=== PATIENT | female | born 1995 | race American Indian/Alaskan Native ===

== ENCOUNTER 2017-06-17 06:54 | Emergency (ER) | payer OTHER ==
[2017-06-17 07:04] VITALS: O2SAT 98
--- NOTE | 2017-06-17 08:30 | C.PDOC ---
History Of Present Illness 22 y/o female with history of Asthma presents to ED with complaints of left sided rib, chest and back pain for 2 days. Patient states pain is worse with movement or taking deep breaths, and admits to heavy lifting at work. Patient admits she recently started smoking again and reports shortness of breath. Denies cough, fever, dizziness, headache or weakness Time Seen by Provider: 06/17/17 07:12 Chief Complaint (Nursing): Chest Pain History Per: Patient History/Exam Limitations: no limitations Onset/Duration Of Symptoms: Days Current Symptoms Are (Timing): Still Present Past Medical History Reviewed: Historical Data, Nursing Documentation, Vital Signs Vital Signs: Last Vital Signs Temp 97.9 F 06/17/17 08:30 Pulse 97 H 06/17/17 08:30 Resp 16 06/17/17 08:30 BP 109/66 06/17/17 08:30 Pulse Ox 98 06/17/17 13:04 - Medical History PMH: Asthma Surgical History: No Surg Hx Family History: States: No Known Family Hx - Social History Hx Alcohol Use: No Hx Substance Use: No - Immunization History Hx Tetanus Toxoid Vaccination: No Hx Influenza Vaccination: Yes Hx Pneumococcal Vaccination: Yes Review Of Systems Constitutional: Negative for: Fever Cardiovascular: Positive for: Chest Pain Respiratory: Positive for: Shortness of Breath. Negative for: Cough Gastrointestinal: Negative for: Nausea, Vomiting Genitourinary: Negative for: Dysuria, Hematuria Musculoskeletal: Positive for: Back Pain Physical Exam - Physical Exam Appears: Non-toxic, No Acute Distress Skin: Warm, Dry, No Rash Head: Atraumatic, Normacephalic Eye(s): bilateral: Normal Inspection, EOMI Oral Mucosa: Moist Neck: Normal ROM, Supple Chest: Symmetrical, Tenderness (to left subscapular area), No Ecchymosis, No Subcutaneous Emphysema, Other (Left lateral ribs tenderness. No palpable bone deformity. ) Cardiovascular: Rhythm Regular, No Murmur Respiratory: Normal Breath Sounds, No Rales, No Rhonchi, No Wheezing Gastrointestinal/Abdominal: Soft, No Tenderness, No Guarding, No Rebound Extremity: Normal ROM, Capillary Refill (<2 seconds), No Deformity, No Swelling Neurological/Psych: Oriented x3, Normal Speech Gait: Steady ED Course And Treatment ECG: Interpreted By Me, Viewed By Me ECG Rhythm: Sinus Rhythm ECG Interpretation: No Acute Changes Rate From EC O2 Sat by Pulse Oximetry: 98 (RA) Pulse Ox Interpretation: Normal - Other Rad ribs and chest X-Ray: Viewed By Me, Read By Radiologist Interpretation: PROCEDURE: Radiographs of the Chest and Left Ribs. HISTORY: pain to left side. COMPARISON: None available. TECHNIQUE: Frontal radiograph of the chest and multiple oblique radiographs of the left ribs were obtained. FINDINGS: LEFT RIBS: No fracture or focal lesion visualized. LUNGS : Clear. PLEURA: No pneumothorax or pleural fluid. CARDIOVASCULAR: Normal sized heart. No pulmonary vascular congestion. OTHER FINDINGS: None. IMPRESSION: Unremarkable radiographs of the chest and left ribs. No left rib fracture. . Medical Decision Making Medical Decision Making: Impression: chest, rib and back pain Plan: EKG, Chest and rib Xray, Toradol IM Progress: EKG reviewed with no abnormality. Chest and rib xrays was normal, no cardiopulmonary disease or rib fracture. RE-Eval: patient resting comfortably on stretcher eating [employer]. She reports pain is improving. She has no current SOB and stable vital signs. Pain is likely musculoskeletal in young adult female with no significant PMH, other than asthma. 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 Patient stable for discharge. Disposition Counseled Patient/Family Regarding: Studies Performed, Diagnosis, Need For Followup, Rx Given - Disposition Disposition: HOME/ ROUTINE Disposition Time: 08:29 Condition: STABLE Additional Instructions: Your xray and EKG were normal Please apply heat to area of pain Take Ibuprofen as needed for pain Take Flexeril as needed for muscle pain, may cause drowsiness Follow up with your primary medical doctor or clinic in 2-5 days for further evaluation. Return to the emergency department at any time if symptoms persist or worsen. Prescriptions: Cyclobenzaprine [Cyclobenzaprine HCl] 10 mg PO TID #21 tab Ibuprofen [Motrin] 600 mg PO Q8 #30 tab Instructions: Musculoskeletal Pain (ED) Forms: [facility] (Congolese) - POA Present On Arrival: None - Clinical Impression Clinical Impression: Left-sided chest wall pain, Muscle strain of left upper back - PA / ADMINISTRATIVE MANAGER / Resident Statement MD/DO has reviewed & agrees with the documentation as recorded. - Scribe Statement The provider has reviewed the documentation as recorded by the Berkley Marino All medical record entries made by the Scribe were at my direction and personally dictated by me. I have reviewed the chart and agree that the record accurately reflects my personal performance of the history, physical exam, medical decision making, and the department course for this patient. I have also personally directed, reviewed, and agree with the discharge instructions and disposition.
[2017-06-17 08:44] VITALS: BP 109/66; PULSE 97; RESP 16; TEMP 97.9
--- NOTE | 2017-06-17 09:12 | RAD ---
PROCEDURE: Radiographs of the Chest and Left Ribs. HISTORY: pain to left side COMPARISON: None available. TECHNIQUE: Frontal radiograph of the chest and multiple oblique radiographs of the left ribs were obtained. FINDINGS: LEFT RIBS: No fracture or focal lesion visualized. LUNGS: Clear. PLEURA: No pneumothorax or pleural fluid. CARDIOVASCULAR: Normal sized heart. No pulmonary vascular congestion. OTHER FINDINGS: None. IMPRESSION: Unremarkable radiographs of the chest and left ribs. No left rib fracture. .
== END 2017-06-17 08:45 | disposition home or self-care (01) ==
LOC: C.ER 06:54
DX: R07.89 Other chest pain (principal); S29.012A Strain of muscle and tendon of back wall of thorax, initial encounter; X50.9XXA Other and unspecified overexertion or strenuous movements or postures, initial encounter; Y99.0 Civilian activity done for income or pay
CPT/HCPCS: 71101; 96372; 99284; J1885

== ENCOUNTER 2017-06-23 13:54 | Emergency (ER) | payer OTHER ==
[2017-06-23 14:10] VITALS: BMI 23.4
[2017-06-23 14:13] VITALS: TEMP 98.1
--- NOTE | 2017-06-23 17:27 | RAD ---
PROCEDURE: Radiographs of the neck (soft tissue). HISTORY: NECK PAIN COMPARISON: None. TECHNIQUE: Frontal and Lateral Radiographs of the neck, optimized for soft tissue visualization. FINDINGS: SOFT TISSUES: No radiopaque foreign body. Midline trachea. Normal epiglottis. No retropharyngeal soft tissue swelling. CERVICAL SPINE: Grossly unremarkable. OTHER FINDINGS: None. IMPRESSION: Unremarkable radiographs of the soft tissues of the neck.
--- NOTE | 2017-06-23 17:28 | RAD ---
HISTORY: CHEST PRESSURE COMPARISON: No prior. TECHNIQUE: Chest PA and lateral FINDINGS: LUNGS: No active pulmonary disease. PLEURA: No significant pleural effusion identified. No pneumothorax apparent. CARDIOVASCULAR: Normal. OSSEOUS STRUCTURES: No significant abnormalities. VISUALIZED UPPER ABDOMEN: Normal. OTHER FINDINGS: None. IMPRESSION: No active disease.
[2017-06-23] MEDS ORDERED: Pantoprazole 40 mg EC Tab PO STA (17:39)
--- NOTE | 2017-06-23 17:42 | C.PDOC ---
History Of Present Illness Patient presents to ED c/o squeezing/pressure like sensation in throat and chest since earlier today. She denies fever, cough, runny nose, body aches, SOB , ingestion of foreign bodies, abdominal pain, nausea/vomiting. Time Seen by Provider: 06/23/17 15:49 Chief Complaint (Nursing): Anxiety History Per: Patient History/Exam Limitations: no limitations Onset/Duration Of Symptoms: Hrs Current Symptoms Are (Timing): Still Present Severity: Mild Associated Symptoms: denies: Fever, Chills, Nausea, Vomiting, Diarrhea Past Medical History Reviewed: Historical Data, Nursing Documentation, Vital Signs Vital Signs: Last Vital Signs Temp 98.1 F 06/23/17 14:10 Pulse 72 06/23/17 17:51 Resp 20 06/23/17 17:51 BP 110/70 06/23/17 17:51 Pulse Ox 98 06/23/17 17:51 - Medical History PMH: Asthma Family History: States: No Known Family Hx - Social History Hx Alcohol Use: No Hx Substance Use: No - Immunization History Hx Tetanus Toxoid Vaccination: No Hx Influenza Vaccination: Yes Hx Pneumococcal Vaccination: Yes Review Of Systems Except As Marked, All Systems Reviewed And Found Negative. Constitutional: Negative for: Fever, Chills ENT: Positive for: Throat Pain. Negative for: Ear Pain, Nose Congestion Cardiovascular: Positive for: Other (chest squeezing ). Negative for: Palpitations Respiratory: Negative for: Cough, Shortness of Breath Gastrointestinal: Negative for: Nausea, Vomiting, Abdominal Pain, Diarrhea Physical Exam - Physical Exam Appears: Well, Non-toxic, No Acute Distress, Other (anxious appearing, speaking in full sentences) Skin: Normal Color, Warm, Dry, No Rash Eye(s): bilateral: Normal Inspection Nose: Normal Oral Mucosa: Moist, No Drooling Tongue: Normal Appearing, No Swelling Lips: Normal Appearing, No Swelling Throat: Normal, No Erythema, No Exudate, No Drooling Neck: Normal, Normal ROM, Other (no thyromegaly) Cardiovascular: Rhythm Regular, No Murmur Respiratory: Normal Breath Sounds, No Rales, No Rhonchi, No Wheezing Gastrointestinal/Abdominal: Normal Exam, Bowel Sounds, Soft, No Tenderness Neurological/Psych: Oriented x3 ED Course And Treatment ECG: Interpreted By Me, Viewed By Me (NSR 76 bpm, normal axis, no acute ST/T wave changes) ECG Interpretation: Normal O2 Sat by Pulse Oximetry: 100 (RA) Pulse Ox Interpretation: Normal - Other Rad soft tissue neck Xray X-Ray: Viewed By Me, Read By Radiologist Interpretation: Accession No. : [id number]. Patient Name / ID : LYNDA SIMPSON / [id number]. Exam Date : 06/23/2017 17:01:47 ( Approved ). Study Comment : Sex / Age : F / 22Y. Creator : Juanito Sood MD. Dictator : Juanito Sood MD. Service Trainer : Retail Customer Service Specialist : Juanito Sood MD. Approver2 : Report Date : 06/23/2017 17:25:46. My Comment : . PROCEDURE: Radiographs of the neck (soft tissue). HISTORY: NECK PAIN. COMPARISON: None. TECHNIQUE: Frontal and Lateral Radiographs of the neck, optimized for soft tissue visualization. FINDINGS: SOFT TISSUES: No radiopaque foreign body. Midline trachea. Normal epiglottis. No retropharyngeal soft tissue swelling. CERVICAL SPINE: Grossly unremarkable. OTHER FINDINGS: None. IMPRESSION: Unremarkable radiographs of the soft tissues of the neck. CXR X-Ray: Viewed By Me, Read By Radiologist Interpretation: Accession No. : [id number]. Patient Name / ID : LYNDA SIMPSON / [id number]. Exam Date : 06/23/2017 17:01:33 ( Approved ). Study Comment : Sex / Age : F / 22Y. Creator : Juanito Sood MD. Dictator : Juanito Sood MD. Service Trainer : Retail Customer Service Specialist : Juanito Sood MD. Approver2 : Report Date : 06/23/2017 17:26:31. My Comment : . HISTORY: CHEST PRESSURE. COMPARISON: No prior. TECHNIQUE: Chest PA and lateral. FINDINGS: LUNGS: No active pulmonary disease. PLEURA: No significant pleural effusion identified. No pneumothorax apparent. CARDIOVASCULAR: Normal. OSSEOUS STRUCTURES: No significant abnormalities. VISUALIZED UPPER ABDOMEN: Normal. OTHER FINDINGS: None. IMPRESSION: No active disease. Progress Note: CXR and EKG ordered and reviewed. Patient's symptoms suspcious for GI etiology - GERD vs esophageal spasm. PO Protonix given. Reevaluation Time: 17:40 Reassessment Condition: Improved (Patient given Rx for Protonix, and instructed to follow up with GI within 1 week. She understands she should return to ED if symptoms worsen.) Disposition Counseled Patient/Family Regarding: Studies Performed, Diagnosis, Need For Followup, Rx Given - Disposition Referrals: Tj Shepherd MD [Staff Provider] - Alice Costello MD [Non-Staff] - Disposition: HOME/ ROUTINE Disposition Time: 17:40 Condition: STABLE Additional Instructions: FOLLOW UP WITH GI SPECIALIST WITHIN 1 WEEK USE MEDICATIONS DIRECTED RETURN TO ER IF SYMPTOMS WORSEN Prescriptions: Pantoprazole [Protonix EC Tab] 20 mg PO DAILY #30 ect Forms: [facility] (Maltese), General Discharge Instructions Print Language: POLISH - Clinical Impression Clinical Impression: Epigastric discomfort, Chest discomfort, Esophageal spasm
[2017-06-23] MEDS ORDERED: Pantoprazole 40 mg EC Tab PO ONE (17:50)
[2017-06-23 17:52] VITALS: BP 110/70; PULSE 72; RESP 20
[2017-06-23 18:33] VITALS: O2SAT 100
--- NOTE | 2017-06-24 11:46 | CARD ---
APPROVED REPORT EKG Measurement Heart [id number] ID [id number] <Conclusion> Normal sinus rhythm Normal ECG
== END 2017-06-23 17:51 | disposition home or self-care (01) ==
LOC: C.ER 13:54
DX: R07.89 Other chest pain (principal); R10.13 Epigastric pain; K22.4 Dyskinesia of esophagus

== ENCOUNTER 2017-11-16 09:02 | Emergency (ER) | payer MEDICAID, OTHER ==
[2017-11-16 09:02] VITALS: BMI 23.4
--- NOTE | 2017-11-16 10:26 | C.PDOC ---
History Of Present Illness 22 yo female come in for evaluation of lower abdominal discomfort gradually developed for past 1 week associated with thick white vaginal discharges, some discomfort on urination. Otherwise, pt denies fever, chills, recent illness or abx use, abd. pain, N/V/D, hematuria. Ambulate to Ed for evaluation, not in any apparent distress. Time Seen by Provider: 11/16/17 09:09 Chief Complaint (Nursing): Abdominal Pain History Per: Patient Past Medical History Reviewed: Historical Data, Nursing Documentation, Vital Signs Vital Signs: Last Vital Signs Temp 98.6 F 11/16/17 11:08 Pulse 61 11/16/17 11:08 Resp 17 11/16/17 11:08 BP 111/72 11/16/17 11:08 Pulse Ox 100 11/16/17 11:08 - Medical History PMH: Asthma, Gastrointestinal Ulcer Family History: States: No Known Family Hx - Social History Hx Tobacco Use: No Hx Alcohol Use: Yes Hx Substance Use: No - Immunization History Hx Tetanus Toxoid Vaccination: No Hx Influenza Vaccination: No Hx Pneumococcal Vaccination: No Review Of Systems Except As Marked, All Systems Reviewed And Found Negative. Constitutional: Negative for: Fever, Chills ENT: Negative for: Throat Pain Cardiovascular: Negative for: Chest Pain Respiratory: Negative for: Cough, Shortness of Breath Gastrointestinal: Negative for: Nausea, Vomiting, Abdominal Pain, Diarrhea Genitourinary: Positive for: Dysuria, Vaginal Discharge. Negative for: Frequency, Incontinence, Vaginal Bleeding Musculoskeletal: Negative for: Neck Pain, Back Pain Skin: Negative for: Rash Neurological: Negative for: Headache, Dizziness Physical Exam - Physical Exam Appears: Well, Non-toxic, No Acute Distress Skin: Normal Color, Warm, Dry, No Rash Head: Normacephalic Eye(s): bilateral: PERRL Nose: No Flaring, No Discharge Oral Mucosa: Moist, No Drooling Throat: No Erythema, No Drooling Neck: Trachea Midline, Supple Cardiovascular: Rhythm Regular, No Murmur, No JVD Respiratory: No Decreased Breath Sounds, No Accessory Muscle Use, No Wheezing Gastrointestinal/Abdominal: Soft, Tenderness (mild suprapubic tenderness), No Distention, No Guarding, No Rebound Back: No CVA Tenderness Extremity: Normal ROM, No Deformity, No Swelling Neurological/Psych: Oriented x3, Normal Speech ED Course And Treatment O2 Sat by Pulse Oximetry: 95 Pulse Ox Interpretation: Normal Progress Note: On re-evaluation, pt is afebrile, hemodynamicaly stable. Non- toxic. Ambulatory in Ed with stable gait. ENT: no acute finidngs. neck: SUpple. Lungs: CTA B/L, BS equal B/L. Abd: benign, (-) guaridng, (-) rebound. back: (-) CVA tenderness. UA results review, appears normal. Pt has clinical finidngs c/w vulvovaginitis. Pt advised. ref. to f/u with PMD, [facility] in 2-3 days for re-evaluation. return to Ed if any worsening or new changes. Disposition Counseled Patient/Family Regarding: Diagnosis, Need For Followup, Rx Given - Disposition [facility] Disposition: HOME/ ROUTINE Disposition Time: 10:40 Condition: STABLE Additional Instructions: Encourage fluids Take medication as prescribed Follow up with [facility] In 2-3 days for re-evaluation. return to ED if any worsening or new changes. Prescriptions: Fluconazole [Diflucan] 150 mg PO DAILY #3 tab Miconazole/Cleanser 17 On Wipe [Monistat 7 Combination Pack] 1 each VG HS #1 kit Instructions: Vaginal Yeast Infection (DC) Forms: [employer] (Spanish) - Clinical Impression Clinical Impression: Vulvovaginal candidiasis
[2017-11-16 10:51] LABS: SQUAMOUS EPITHIAL 2 /hpf (0-5); URINE BILIRUBIN NEGATIVE (NEGATIVE); URINE BLOOD NEGATIVE (NEGATIVE); URINE CLARITY Clear (Clear); URINE COLOR Yellow (YELLOW); URINE GLUCOSE (UA) NORMAL (Normal); URINE LEUKOCYTE ESTERASE NEG Leu/uL (Negative); URINE PROTEIN NEGATIVE (NEGATIVE)
[2017-11-16 10:54] LABS: HCG,QUALITATIVE URINE NEGATIVE (NEGATIVE)
[2017-11-16 11:10] VITALS: BP 111/72; PULSE 61; RESP 17; TEMP 98.6
[2017-11-16 18:46] VITALS: O2SAT 95
== END 2017-11-16 11:08 | disposition home or self-care (01) ==
LOC: C.ER 09:02
DX: B37.3 Candidiasis of vulva and vagina (principal)